=== PATIENT | female | born 1980 | race Caucasian/White ===

== ENCOUNTER 2018-10-17 20:35 | Emergency (ER) | payer MEDICAID, OTHER ==
[~2018-10-17] VITALS: Ht 160 cm; Wt 80.6 kg
[2018-10-17 20:48] VITALS: Ht 160 cm; Wt 80.6 kg
[2018-10-17] MEDS ORDERED: SOD CHLORIDE 0.9% 500 ML IV STA (23:06)
[2018-10-17] MEDS ORDERED: morphine 4 MG/ML VIAL IV STA (23:06)
[2018-10-17] MEDS ORDERED: ONDANSETRON 4 MG INJ IV STA (23:06)
[2018-10-18] MEDS ORDERED: morphine 4 MG/ML VIAL IV STA (01:13)
[2018-10-18] MEDS ORDERED: ONDANSETRON 4 MG INJ IV STA (01:13)
[2018-10-18] MEDS ORDERED: CIPR500T4 PO (04:00)
[2018-10-18] MEDS ORDERED: TRAM50TA2 PO (04:00)
--- NOTE | 2018-10-18 04:03 | ERD ---
ER Documentation Chief Complaint Chief Complaint PT REPORTS RUQ PAIN X 5 DAYS WITH VOMITING HX DANIELA HPI Is a 2-year-old female with right upper quadrant pain for 5 days. Patient has history of cholecystectomy since the pain radiates from her right upper quadrant to right lower quadrant. Denies dysuria. Denies frequency of urination. Pain is mild to moderate intensity with no exacerbating or alleviating factors ROS All systems reviewed and are negative except as per history of present illness. Medications Home Meds Active Scripts Tramadol HCl (Tramadol HCl) 50 Mg Tablet, 50 MG PO Q4 PRN for PAIN, #20 TAB Prov:NIKA PAULSON 10/18/18 Ciprofloxacin Hcl* (Ciprofloxacin Hcl*) 500 Mg Tablet, 500 MG PO BID for 5 Days, TAB Prov:NIKA PAULSON 10/18/18 Allergies Allergies: Coded Allergies: No Known Allergy (Unverified , 10/17/18) PMhx/Soc History of Surgery: Yes (cholecystectomy) Anesthesia Reaction: No Hx Neurological Disorder: No Hx Respiratory Disorders: No Hx Cardiac Disorders: No Hx Psychiatric Problems: No Hx Alcohol Use: No Hx Substance Use: No Hx Tobacco Use: No Smoking Status: Never smoker Physical Exam Vitals Vital Signs Date Temp Pulse Resp B/P (MAP) Pulse Ox O2 O2 Flow FiO2 Time Delivery Rate 10/18/18 73 16 123/71 98 Room Air 02:00 (88) 10/18/18 98.0 66 16 143/71 98 00:39 (95) 10/17/18 98.4 76 18 150/74 99 20:48 (99) Physical Exam Const: No acute distress Head: Atraumatic Eyes: Normal Conjunctiva ENT: Normal External Ears, Nose and Mouth. Neck: Full range of motion. No meningismus. Resp: Clear to auscultation bilaterally Cardio: Regular rate and rhythm, no murmurs Abd: Soft, non tender, non distended. Normal bowel sounds Skin: No petechiae or rashes Back: No midline or flank tenderness Ext: No cyanosis, or edema Neur: Awake and alert Psych: Normal Mood and Affect Result Diagram: 10/17/18232810/17/182328 Results 24 hrs Laboratory Tests Test 10/17/18 23:29 10/17/18 23:41 White Blood Count 10.3 10^3/ul Red Blood Count 4.33 10^6/ul Hemoglobin 13.0 g/dl Hematocrit 39.0 % Mean Corpuscular Volume 90.1 fl Mean Corpuscular Hemoglobin 30.0 pg Mean Corpuscular Hemoglobin Concent 33.3 g/dl Red Cell Distribution Width 12.5 % Platelet Count 379 10^3/UL Mean Platelet Volume 9.2 fl Immature Granulocytes % 0.300 % Neutrophils % 39.9 % Lymphocytes % 51.2 % Monocytes % 5.3 % Eosinophils % 2.7 % Basophils % 0.6 % Nucleated Red Blood Cells % 0.0 /100WBC Immature Granulocytes # 0.030 10^3/ul Neutrophils # 4.1 10^3/ul Lymphocytes # 5.3 10^3/ul Monocytes # 0.6 10^3/ul Eosinophils # 0.3 10^3/ul Basophils # 0.1 10^3/ul Nucleated Red Blood Cells # 0.0 10^3/ul Prothrombin Time 12.2 Sec Prothrombin Time Ratio 1.0 INR International Normalized Ratio 0.89 Activated Partial Thromboplast Time 25.4 Sec Urine Color YELLOW Urine Clarity CLEAR Urine pH 5.0 Urine Specific [place] 1.016 Urine Ketones NEGATIVE mg/dL Urine Nitrite NEGATIVE mg/dL Urine Bilirubin NEGATIVE mg/dL Urine Urobilinogen NEGATIVE mg/dL Urine Leukocyte Esterase NEGATIVE Reema/ul Urine Hemoglobin NEGATIVE mg/dL Urine Glucose NEGATIVE mg/dL Urine Total Protein NEGATIVE mg/dl Sodium Level 142 mmol/L Potassium Level 3.9 mmol/L Chloride Level 103 mmol/L Carbon Dioxide Level 24 mmol/L Anion Gap 15 Blood Urea Nitrogen 15 mg/dl Creatinine 1.12 mg/dl Est Glomerular Filtrat Rate mL/min 54 mL/min Glucose Level 100 mg/dl Calcium Level 9.5 mg/dl Total Bilirubin 0.3 mg/dl Direct Bilirubin 0.00 mg/dl Indirect Bilirubin 0.3 mg/dl Aspartate Amino Transf (AST/SGOT) 23 IU/L Alanine Aminotransferase (ALT/SGPT) 20 IU/L Alkaline Phosphatase 92 IU/L Total Protein 8.4 g/dl Albumin 4.8 g/dl Globulin 3.60 g/dl Albumin/Globulin Ratio 1.33 Lipase 73 U/L POC Beta HCG, Qualitative NEGATIVE Current Medications Medications Dose Sig/Jody Start Time Status Last (Trade) Ordered Route PRN Stop Time Admin Dose Reason Admin Sodium 500 ml @ Q1H STAT 10/17/18 DC 10/17/18 Chloride 500 mls/hr IV 23:06 23:25 10/18/18 00:05 Morphine 4 mg ONCE STAT 10/17/18 DC 10/17/18 Sulfate IV 23:06 23:25 (morphine) 10/17/18 23:07 Ondansetron 4 mg ONCE STAT 10/17/18 DC 10/17/18 HCl (Zofran IV 23:06 23:25 Inj) 10/17/18 23:07 Morphine 4 mg ONCE STAT 10/18/18 DC 10/18/18 Sulfate IV 01:13 01:22 (morphine) 10/18/18 01:14 Ondansetron 4 mg ONCE STAT 10/18/18 DC 10/18/18 HCl (Zofran IV 01:13 01:22 Inj) 10/18/18 01:14 Procedures/MDM Medical decision making: Patient's gastrointestinal symptoms have stabilized while in the department. No evidence of severe dehydration, sepsis, or surgical abdomen. Extensive discussion with family and patient that occult disease cannot be ruled out. 8 hour recheck for repeat abdominal exam is planned. Departure Diagnosis: Primary Impression: Abdominal pain Abdominal location: unspecified location Qualified Codes: R10.9 - Unspecified abdominal pain Condition: Stable Patient Instructions: Kidney Stone, Passed NIKA PAULSON Oct 18, 2018 04:03
[2018-10-18 04:07] VITALS: BP 114/79; PULSE 75; RESP 18
== END 2018-10-18 04:11 | disposition home or self-care (01) ==
LOC: E/R 20:35
DX: R10.11 Right upper quadrant pain (principal); R11.10 Vomiting, unspecified
CPT/HCPCS: 36415; 74176; 80053; 81003; 81025; 83690; 85025; 85610; 85730; 96374; 96375; 96376; J2270; J2405; J7040; Z7502

== ENCOUNTER 2018-10-25 01:58 | Emergency (ER) | payer MEDICAID ==
[~2018-10-25] VITALS: Ht 167.6 cm; Wt 77.5 kg
[~2018-10-25 01:58] MED LIST: CIPR500T4 PO; TRAM50TA2 PO
[2018-10-25 02:02] VITALS: Ht 167.6 cm; Wt 77.5 kg
[2018-10-25] MEDS ORDERED: KETOROLAC 15 MG INJ IV STA (02:40)
[2018-10-25] MEDS ORDERED: SOD CHLORIDE 0.9% 1,000 ML IV ONE (03:00)
--- NOTE | 2018-10-25 05:23 | ERD ---
ER Documentation Chief Complaint Chief Complaint RUQ ab pain x 2 days; hx kidney stones HPI This is a 38-year-old female with a past medical history of nephrolithiasis, previous cholecystitis status post cholecystectomy who is presenting with 2 days of right upper quadrant radiating to the right flank. She describes it as a mild to moderate waxing and waning deep aching pain with nausea but no vomiting. The patient and also endorses a few episodes of loose watery brown nonbloody diarrhea. The patient endorses urinary frequency and urgency as well. She does also endorse dysuria. She has not noticed blood in her urine, but her urine has been darker than usual. She denies constipation. The patient denies feeling sick recently. The patient denies fever or chills. The patient has had no headache or vision changes. The patient does not endorse neck or back pain. The patient denies lightheadedness or dizziness. The patient has had no chest pain or trouble breathing. The patient has had no focal deficits. The patient has had no weakness or numbness or tingling to the face or extremities. ROS All systems reviewed and are negative except as per history of present illness. Medications Home Meds Active Scripts Tramadol HCl (Tramadol HCl) 50 Mg Tablet, 50 MG PO Q4 PRN for PAIN, #20 TAB Prov:NIKA PAULSON 10/18/18 Ciprofloxacin Hcl* (Ciprofloxacin Hcl*) 500 Mg Tablet, 500 MG PO BID for 5 Days, TAB Prov:NIKA PAULSON 10/18/18 Allergies Allergies: Coded Allergies: No Known Allergy (Unverified , 10/17/18) PMhx/Soc History of Surgery: Yes (cholecystectomy) Anesthesia Reaction: No Hx Neurological Disorder: No Hx Respiratory Disorders: No Hx Cardiac Disorders: No Hx Psychiatric Problems: No Hx Alcohol Use: No Hx Substance Use: No Hx Tobacco Use: No Smoking Status: Never smoker FmHx Family History: No diabetes Physical Exam Vitals Vital Signs Date Temp Pulse Resp B/P (MAP) Pulse Ox O2 O2 Flow FiO2 Time Delivery Rate 10/25/18 65 20 101/51 98 Room Air 04:02 (68) 10/25/18 98.3 70 18 147/98 99 02:02 (114) Physical Exam Const: No acute distress Head: Atraumatic Eyes: Normal Conjunctiva ENT: Normal External Ears, Nose and Mouth. Neck: Full range of motion. No meningismus. Resp: Clear to auscultation bilaterally Cardio: Regular rate and rhythm, no murmurs Abd: Soft, non tender, non distended. Normal bowel sounds Skin: No petechiae or rashes Back: No midline tenderness. Mild right-sided flank tenderness Ext: No cyanosis, or edema Neur: Awake and alert Psych: Normal Mood and Affect Result Diagram: 10/25/18 0300 10/25/18 0300 Results 24 hrs Laboratory Tests Test 10/25/18 02:53 10/25/18 03:00 Bedside Urine pH (LAB) 6.5 Bedside Urine Protein (LAB) Negative Bedside Urine Glucose (UA) Negative Bedside Urine Ketones (LAB) Negative Bedside Urine Blood 1+ Bedside Urine Nitrite (LAB) Negative Bedside Urine Leukocyte Esterase (L Negative POC Beta HCG, Qualitative NEGATIVE White Blood Count 8.7 10^3/ul Red Blood Count 4.26 10^6/ul Hemoglobin 12.7 g/dl Hematocrit 38.8 % Mean Corpuscular Volume 91.1 fl Mean Corpuscular Hemoglobin 29.8 pg Mean Corpuscular Hemoglobin Concent 32.7 g/dl Red Cell Distribution Width 12.4 % Platelet Count 380 10^3/UL Mean Platelet Volume 9.0 fl Immature Granulocytes % 0.300 % Neutrophils % 42.8 % Lymphocytes % 47.7 % Monocytes % 6.1 % Eosinophils % 2.4 % Basophils % 0.7 % Nucleated Red Blood Cells % 0.0 /100WBC Immature Granulocytes # 0.030 10^3/ul Neutrophils # 3.7 10^3/ul Lymphocytes # 4.2 10^3/ul Monocytes # 0.5 10^3/ul Eosinophils # 0.2 10^3/ul Basophils # 0.1 10^3/ul Nucleated Red Blood Cells # 0.0 10^3/ul Urine Color YELLOW Urine Clarity CLEAR Urine pH 6.0 Urine Specific [place]rentiss 1.018 Urine Ketones NEGATIVE mg/dL Urine Nitrite NEGATIVE mg/dL Urine Bilirubin NEGATIVE mg/dL Urine Urobilinogen NEGATIVE mg/dL Urine Leukocyte Esterase NEGATIVE Reema/ul Urine Microscopic RBC 2 /HPF Urine Microscopic WBC 0 /HPF Urine Hemoglobin 2+ mg/dL Urine Glucose NEGATIVE mg/dL Urine Total Protein NEGATIVE mg/dl Sodium Level 143 mmol/L Potassium Level 3.7 mmol/L Chloride Level 107 mmol/L Carbon Dioxide Level 26 mmol/L Anion Gap 10 Blood Urea Nitrogen 16 mg/dl Creatinine 0.77 mg/dl Est Glomerular Filtrat Rate mL/min > 60 mL/min Glucose Level 100 mg/dl Calcium Level 8.6 mg/dl Total Bilirubin 0.3 mg/dl Direct Bilirubin 0.00 mg/dl Indirect Bilirubin 0.3 mg/dl Aspartate Amino Transf (AST/SGOT) 23 IU/L Alanine Aminotransferase (ALT/SGPT) 16 IU/L Alkaline Phosphatase 90 IU/L Total Protein 8.0 g/dl Albumin 4.6 g/dl Globulin 3.40 g/dl Albumin/Globulin Ratio 1.35 Lipase 82 U/L Current Medications Medications Dose Sig/Jody Start Time Status Last (Trade) Ordered Route PRN Stop Time Admin Dose Reason Admin Sodium 1,000 ml @ Q1H ONCE 10/25/18 DC 10/25/18 Chloride 1,000 mls/hr IV 03:00 02:56 10/25/18 03:59 Ketorolac 15 mg ONCE STAT 10/25/18 DC 10/25/18 Tromethamine IV 02:40 02:56 (Toradol) 10/25/18 02:41 Procedures/MDM MDM The patient's presentation warrants further investigation. Previous medical records, if available, were reviewed. LABS The patient's laboratory testing was obtained and reviewed. No emergent treatment was required unless described below. CBC: No E/o systemic infection or severe anemia or thrombocytopenia Chemistry: No E/o severe acidosis or alkalosis or renal failure or liver disease or diabetic ketoacidosis Lipase: No E/o pancreatitis Urine: No E/o acute infection. + hematuria IMAGING Imaging and Radiology interpretation reviewed. Renal ultrasound FINDINGS: RIGHT KIDNEY: Measures 10.7 cm in length without appreciated abnormality. LEFT KIDNEY: Measures 11.1 cm in length without appreciated abnormality. BLADDER: Not distended. IMPRESSION: Unremarkable renal ultrasound. Electronically viewed and signed by Kiran Olmedo Physician on 10/25/2018 05:19 TREATMENT/DISPOSITION The patient symptoms are concerning for possible nephrolithiasis and renal colic. The patient has a history of kidney stones. The patient's symptoms were controlled with IV fluids and Toradol in the ER. I do not feel the patient requires more advanced imaging. I do not see evidence of a urinary tract infection. The patient's renal ultrasound is unremarkable. I have low suspicion for pyelonephritis. I do not see evidence of hydronephrosis. The patient does not have any evidence of peritonitis. The patient does not have clinical symptoms concerning for mesenteric ischemia or ischemic colitis. The patient does not have any epigastric pain. I have low suspicion for gastritis, PUD or GERD. The patient does not have left upper quadrant tenderness. I have low suspicion for pancreatitis. The patient does not have any right lower quadrant tenderness, or periumbilical tenderness. I have low suspicion for appendicitis. The patient does not have any left lower quadrant tenderness, and I have low suspicion for diverticulosis or diverticulitis. The patient does not have any palpable pulsatile mass or severe abdominal pain radiating to the back. I have low suspicion for aortic aneurysm, dissection or rupture. DISCHARGE Upon reevaluation of the patient, symptoms have improved. No emergent diagnoses were identified. At this time, I feel that the patient stable for discharge. The patient was instructed to follow-up with a primary care physician in 1-3 days. The patient will be given strict precautions with which to return to the emergency department. Prescriptions: Ibuprofen, Flomax, Zofran The patient's blood pressure was elevated at greater than 120/80 while in the emergency department. The patient was otherwise stable with no evidence of hypertensive urgency or emergency. The patient does not require admission for blood pressure control. I have discussed with the patient the risks of hypertension. I have instructed the patient to return to the ER for any new or worsening symptoms including chest pain, shortness of breath, headache, blurred vision, confusion, nausea, vomiting or LOC. I have advised the patient to follow up with the primary care physician for outpatient monitoring and treatment for hypertension in 1-3 days. Disclaimer: Inadvertent spelling and grammatical errors are likely due to EHR/dictation software use and do not reflect on the overall quality of patient care. Note that the electronic time recorded on this note does not necessarily reflect the actual time of the patient encounter. Departure Diagnosis: Primary Impression: Renal colic on right side Additional Impressions: Hematuria Hematuria type: other microscopic Qualified Codes: R31.29 - Other microscopic hematuria Nausea Nephrolithiasis Condition: Stable Patient Instructions: Kidney Stone W/ Colic, Hematuria, Nausea Additional Instructions: Thank you for for coming to [facility] for your care today. Please ask your nurse or provider if you have questions about your care today and do not leave until all your questions have been answered. Please use any medications given as directed and follow-up with your doctor (or the doctor you were referred to) in the next 1-3 days. If you do not have a primary care doctor you may follow up at the [facility] or [facility] (listed below). You may also use motrin and tylenol as needed for fever and/or pain unless instructed otherwise by your provider or nurse. Indications for more urgent follow-up have been discussed, but you may return to the Emergency Department at ANY time for any worrisome or worsening symptoms. If you have abdominal pain, please know that no test or exam you received is perfect and you should follow up within 8 hours for continued pain. If you had any imaging studies today, such as an X-Ray or CT Scan, these studies will be reviewed later by a radiologist. You will be called if there are important findings that were not identified today, so make sure the contact information you provided at registration is correct. If you received any narcotic pain control medicine today, such as Vicodin, Morphine or Dilaudid, your coordination and judgment may be affected for a number of hours. Please do not drive or operate heavy machinery, and you may want someone to assist you at home. If you were given a prescription for narcotic medication, be aware that it is very addictive- use sparingly and only if necessary. PLEASE SEEK FURTHER EVALUATION AND MANAGEMENT AT YOUR DOCTORS OFFICE WITHIN THE NEXT 1-3 DAYS. IT IS YOUR RESPONSIBILITY TO MAKE AN APPOINTMENT FOR FOLOW-UP CARE. IF YOU HAVE A PRIMARY DOCTOR, PLEASE CALL THEIR OFFICE TO SCHEDULE AN APPOINTMENT FOR FOLLOW UP. IF YOU DO NOT HAVE A PRIMARY DOCTOR YOU CAN CALL OUR PHYSICIAN REFERRAL HOTLINE AT IF YOU CAN NOT AFFORD TO SEE A PHYSICIAN YOU CAN CHOSE FROM THE FOLLOWING FORMERLY [facility], 1928–1983 CLINICS: [facility] [id number] [facility] [address] [facility] [address] [facility] [address] [facility] [address] [facility]. [facility]. [address] TANIKA CARIAS MD Oct 25, 2018 05:23
[2018-10-25] MEDS ORDERED: IBUP-1542 PO (05:26)
[2018-10-25] MEDS ORDERED: ONDA4TAB8 PO (05:26)
[2018-10-25] MEDS ORDERED: TAMS-14 PO (05:26)
[2018-10-25 05:35] VITALS: BP 117/74; PULSE 71; RESP 20
== END 2018-10-25 05:46 | disposition home or self-care (01) ==
LOC: E/R 01:58
DX: N23 Unspecified renal colic (principal); N20.0 Calculus of kidney
CPT/HCPCS: 36415; 76775; 80053; 81001; 81025; 83690; 85025; 96374; J1885; J7030; Z7502; 81003